=== PATIENT | female | born 1985 | race Caucasian/White ===

== ENCOUNTER → 2018-08-24 | Outpatient (CLI) | payer BC ==
--- NOTE | 2018-08-24 12:30 | CT ---
CT CHEST FOR PULMONARY EMBOLISM. EXAMINATION TYPE: CT angio chest DATE OF EXAM: 08/24/2018 INDICATION: Atypical chest pain, Chest and upper back pain CT DLP: 534.4 mGycm, Automated exposure control for dose reduction was used. CONTRAST: Patient injected with 100 mL of Isovue 370. COMPARISON: None TECHNIQUE: CT of the chest is performed on a spiral scan at 2 mm thick sections. Study is performed with intravenous contrast timed for evaluation for pulmonary embolism. This will limit additional po rtions of the evaluation. 3-D MIP images reconstructed by the technologist are reviewed on the compu ter in the coronal and sagittal planes. FINDINGS: No persistent filling defects are evident to suggest an acute pulmonary embolism. No mediastinal or hilar adenopathy enlarged by CT criteria is evident. The ascending aorta diameter at the level of the main pulmonary artery is 3.3 cm. The main pulmonary artery diameter at the bifur cation is 2.7 cm. Lung windows are clear. Limited CT section through the upper abdomen are unremarkable. IMPRESSIONS: 1. Normal CTA chest. No acute pulmonary embolism or dissection evident.
== END | disposition home or self-care (01) ==
LOC: RADCTMAIN 11:15
PROVIDERS: ATTEND Family Medicine
DX: R07.89 Other chest pain (principal)
CPT/HCPCS: 71275; Q9967

== ENCOUNTER → 2018-12-31 | Outpatient (CLI) | payer BC ==
--- NOTE | 2018-12-31 10:53 | US ---
EXAMINATION TYPE: US renal artery duplex complet DATE OF EXAM: 12/31/2018 COMPARISON: NONE CLINICAL HISTORY: I10 hypertension. Pt states uncontrolled HTN x 2 months MEASUREMENTS: RENAL SIZE: Rt Kidney: 12.0 x 4.3 x 4.6 cm Lt Kidney: 11.8 x 6.1 x 4.7 cm RESISTANCE INDEX Right: 0.6 Left: 0.6 RA/AO RATIO (< 3.5 ) Right: 1.2 Left: 1.6 RA VELOCITY ( < 180 cm/s) Right: 116.0 Left: 158.5 Grayscale, color Doppler, spectral Doppler imaging performed of the renal arteries. Waveform analysis does not show significant stenosis. Brisk upstroke noted on waveform analysis with low resistance di astolic flow. Kidneys show normal cortical medullary differentiation cortical thickness. Incidental finding distended GB with possible sludge IMPRESSION: Renal artery stenosis is not evident. Probable tumefactive sludge within the gallbladder.
== END | disposition home or self-care (01) ==
LOC: RADUSWWP 07:54
PROVIDERS: ATTEND Family Medicine
DX: I10 Essential (primary) hypertension (principal)
CPT/HCPCS: 93975

== ENCOUNTER 2021-12-11 08:35 | Day surgery (SDC) | payer BC ==
[2021-12-09 16:10] VITALS: BMI 35.0
[~2021-12-11 08:35] MED LIST: LACTATED RINGERS 1,000 ML IV SCH; LIDOCAINE 1% (10MG/ML) FOR IV START INTRADERMA PRN
[2021-12-11 09:10] VITALS: RESP 16; TEMP 98.1
[2021-12-11] MEDS ORDERED: PROPOFOL 10 MG/ML 20 ML VIAL IV ONE (10:13)
[2021-12-11] MEDS ORDERED: LIDOCAINE 2% INJ 20 MG/ML (2 ML VIAL) ONE (10:13)
--- NOTE | 2021-12-11 10:22 | P.PCN ---
Date of Procedure: 12/11/21 Procedure(s) Performed: BRIEF HISTORY: Patient is a 36-year-old, pleasant, female as a part of evaluation of long-standing history of GERD of almost 18 years duration. She is currently on omeprazole 20 mg daily and symptoms have significantly improved.. PROCEDURE PERFORMED: Esophagogastroduodenoscopy with biopsy. PREOPERATIVE DIAGNOSIS: Long-standing history of GERD. IV sedation per anesthesia. PROCEDURE: After informed consent was obtained, the patient was brought into the endoscopy unit. IV sedation was administered by Anesthesia under continuous monitoring. Initially the Olympus GIF-140 video endoscope was inserted into the mouth. Esophagus intubated without any difficulty. It was gradually advanced into the stomach and duodenum and carefully examined. The bulb and the second part of the duodenum appeared normal. The scope at this time was withdrawn to the stomach, adequately insufflated with air, and upon careful examination, mucosa of the antrum, mild gastritis and biopsies were done from this area. The body, cardia and the fundus appeared normal. The scope was then withdrawn into the esophagus. The GE junction was located at 39 cm from the incisors. Small sliding type hiatal hernia noted. Linear erosions in the distal esophagus consistent with LA grade B reflux esophagitis. The rest of the esophagus appeared normal. The patient tolerated the procedure well. IMPRESSION: 1. Small hiatal hernia. 2. Linear erosions in the distal esophagus consistent with LA grade B reflux esophagitis 3. Mild antral gastritis. RECOMMENDATIONS: The findings of this examination were discussed with the patient as well as a family.. She will follow with the biopsy results. Advised to continue with omeprazole 20 mg daily and follow antireflux measures
[2021-12-11 10:47] VITALS: BP 134/88; PULSE 84
== END 2021-12-11 11:06 | disposition home or self-care (01) ==
LOC: ORWHC2ENDO 08:35
PROVIDERS: ATTEND Internal Medicine Gastroenterology
DX: K21.9 Gastro-esophageal reflux disease without esophagitis (principal); K22.10 Ulcer of esophagus without bleeding; K29.50 Unspecified chronic gastritis without bleeding; K44.9 Diaphragmatic hernia without obstruction or gangrene; I10 Essential (primary) hypertension; F32.A Depression, unspecified; Z79.899 Other long term (current) drug therapy
CPT/HCPCS: 81025; 88305; 43239; J2704; J2001

== ENCOUNTER → 2022-05-08 | Outpatient (CLI) | payer OTHER ==
--- NOTE | 2022-05-08 14:25 | P.SLEEP ---
History of Present Illness DATE: 05/08/2022 CONSULTATION/NEW PATIENT EVALUATION HISTORY OF PRESENT ILLNESS/SLEEP-WAKE EVALUATION: 36 year old lady had been evaluated in the sleep center for possible obstructive sleep apnea hypopnea syndrome. SLEEP SCHEDULE: Usually sleep schedule on weekdays from 10 PM until 5:30 AM, during days off from 11 PM until around 8 AM. FALLING ASLEEP: Sometimes patient has problems with falling asleep, has TV set and bedroom. DURING SLEEP: Patient usually sleeps on the side position. According to her family she has very loud snoring. She wakes up from sleep 3 times with 2 episodes of nocturia. Positive history of dry mouth, panic attacks, heartburn. No history of hypnogogical hallucinations, sleep paralysis, or cataplexy. DURING THE DAY/WAKE STATE: In the morning patient wake up tired, has episodes of irritability, depression and anxiety. [place] sleepiness scale is increased to 11. Usually patient doesn't take naps. PAST MEDICAL HISTORY: Hypertension, anxiety, acid reflux. PAST SURGICAL HISTORY: None. MEDICATIONS: Zoloft 50 mg once a day, Cozaar 100 mg once a day, omeprazole 20 mg once a day. SOCIAL HISTORY: Positive history of smoking for 4 packyears, quit smoking 15 years ago, alcohol consumption occasional. FAMILY HISTORY: Hypertension, asthma, acid reflux. REVIEW OF SYSTEMS: Loud snoring, multiple awakenings from sleep, sleepiness during the day. No fevers. No double vision. No recent chest pain. No shortness of breath. No abdominal pain. No bleeding episodes. No blood in urine. No s eizure episodes. PHYSICAL EXAMINATION: GENERAL: A pleasant patient without any distress. VITAL SIGNS: BP 137/92, HR 99, RR 12, weight 216.0 pounds, height 5 foot 4 inches, body mass index 37. HEENT: PERRLA, EOMI. Evaluation of oropharynx showed tongue protrudes midline, low position of soft palate Mallampati 4. NECK: Supple. No JVD. Thyroid is not palpable. 14-1/2 inches in circumference. LUNGS: Clear to percussion and to auscultation. Good air exchange. No wheezing or rhonchi. HEART: S1, S2 regular. No murmurs, gallops or rubs. ABDOMEN: Soft and nontender. Bowel sounds are present. No organomegaly appreciated. EXTREMITIES: No clubbing or cyanosis. INFORMATION TECHNOLOGY DATA ANALYST: Awake, alert, and oriented x3. Cranial nerves 2 to 7 intact. There is no fasciculation or atrophy noted. No focal deficits observed. ASSESSMENT: 1. Snoring, multiple awakenings from sleep, sleepiness [place] Sleepiness Scale increased to 11, extremely low position of soft palate Mallampati 4. Obstructive sleep apnea hypopnea syndrome. 2. Obesity body mass index 37. 3 hypertension. 4. Acid reflux. 5 history of sinusitis problems. PLAN: 1. Polysomnography for evaluation of patient's breathing during sleep. 2. CPAP/BiPAP titration if sleep study confirms obstructive sleep apnea- hypopnea syndrome. 3. Preferable position during sleep on the side. 4. No driving if patient feels any sleepiness. Patient is aware of civil and criminal liability for unsafe driving. 5. Sleep hygiene with regular sleep time for at least 7.5-8 hours. 6. Watching weight. Thank you very much for referring this patient for consultation. Sincerely, Christofer Reinoso MD, PhD, FAASM. Diplomat of [place] [employer], Sleep Medicine Board by [employer] [employer] Nurse [employer] [facility] [place] Past Medical History Past Medical History: GERD/Reflux, Hypertension Additional Past Medical History / Comment(s): HX HEART PALPITATIONS . History of Any Multi-Drug Resistant Organisms: None Reported Past Surgical History: No Surgical Hx Reported Past Anesthesia/Blood Transfusion Reactions: Motion Sickness Additional Past Anesthesia/Blood Transfusion Reaction / Comment(s): NO ANESTHESIA HX. Past Psychological History: Anxiety Smoking Status: Former smoker Past Alcohol Use History: Occasional Additional Past Alcohol Use History / Comment(s): QUIT SMOKING OVER 15 YEARS AGO, HX OF 1 PPD. Past Drug Use History: None Reported - Past Family History Mother Family Medical History: No Reported History Medications and Allergies Home Medications Medication Instructions Recorded Confirmed Type Losartan Potassium [Cozaar] 100 mg PO DAILY 12/09/21 12/11/21 History Omeprazole 20 mg PO DAILY 12/09/21 12/11/21 History Sertraline [Zoloft] 75 mg PO DAILY 12/09/21 12/11/21 History Allergies Allergy/AdvReac Type Severity Reaction Status Date / Time No Known Allergies Allergy Verified 12/09/21 15:52 Sleep Note - Sleep Note Sleep Note: Temperature: Pulse Rate: Respiratory Rate: Blood Pressure: SpO2: Height: Weight: BMI: Neck Circumference:
== END ==
LOC: SLEEP 13:51
PROVIDERS: ATTEND Internal Medicine
DX: G47.33 Obstructive sleep apnea (adult) (pediatric) (principal); I10 Essential (primary) hypertension; K21.9 Gastro-esophageal reflux disease without esophagitis; Z79.899 Other long term (current) drug therapy; E66.9 Obesity, unspecified; Z68.37 Body mass index [BMI] 37.0-37.9, adult; Z87.09 Personal history of other diseases of the respiratory system
CPT/HCPCS: 99211